=== PATIENT | female | born 1975 | race Caucasian/White ===

== ENCOUNTER 2020-03-16 17:01 | Emergency (ER) | payer MEDICAID ==
[~2020-03-16] VITALS: Ht 154.9 cm; Wt 54.5 kg
[2020-03-16 17:12] VITALS: BP 112/62
== END 2020-03-16 18:52 | disposition home or self-care (01) ==
LOC: ER 17:02
DX: S93.491A Sprain of other ligament of right ankle, initial encounter (principal); W23.0XXA Caught, crushed, jammed, or pinched between moving objects, initial encounter; Y93.89 Activity, other specified; Y92.89 Other specified places as the place of occurrence of the external cause; Y99.8 Other external cause status
CPT/HCPCS: 73610; 99283